=== PATIENT | female | born 1955 | race Caucasian/White ===

== ENCOUNTER 2018-01-14 12:37 | Outpatient (CLI) | payer OTHER | END 2018-01-14 12:42 | disposition home or self-care (01) | LOC: SONOGRAMA 12:37 | DX: E04.1 Nontoxic single thyroid nodule (principal) ==

== ENCOUNTER 2018-04-02 14:06 | Outpatient (CLI) | payer OTHER | END 2018-04-02 15:27 | disposition home or self-care (01) | LOC: RAD 14:06 | DX: C73 Malignant neoplasm of thyroid gland (principal); F17.210 Nicotine dependence, cigarettes, uncomplicated; Z01.810 Encounter for preprocedural cardiovascular examination ==

== ENCOUNTER 2021-06-13 13:08 | Outpatient (CLI) | payer OTHER | END 2021-06-13 13:17 | disposition home or self-care (01) | LOC: RAD 13:08 | PROVIDERS: ATTEND Ophthalmology | DX: R91.8 Other nonspecific abnormal finding of lung field (principal) ==

== ENCOUNTER 2021-09-01 11:21 | Outpatient (CLI) | payer OTHER | END 2021-09-01 15:41 | disposition home or self-care (01) | LOC: MAMO-SONO 11:21 | DX: Z12.31 Encounter for screening mammogram for malignant neoplasm of breast (principal); N64.4 Mastodynia ==

== ENCOUNTER 2021-09-05 09:39 | Outpatient (CLI) | payer OTHER | END 2021-09-05 09:40 | disposition home or self-care (01) | LOC: NUCLEAR 09:39 | PROVIDERS: ATTEND Family Medicine | DX: M81.0 Age-related osteoporosis without current pathological fracture (principal) ==

== ENCOUNTER 2021-10-24 08:30 | Outpatient (CLI) | payer OTHER | END 2021-10-24 08:39 | disposition home or self-care (01) | LOC: TOM 08:30 | PROVIDERS: ATTEND Internal Medicine | DX: K56.50 Intestinal adhesions [bands], unspecified as to partial versus complete obstruction (principal) ==

== ENCOUNTER 2022-04-07 15:21 | Outpatient (CLI) | payer OTHER | END 2022-04-07 15:35 | disposition home or self-care (01) | LOC: RAD 15:21 | PROVIDERS: ATTEND Specialist | DX: M50.222 Other cervical disc displacement at C5-C6 level (principal); M50.322 Other cervical disc degeneration at C5-C6 level; S13.4XXA Sprain of ligaments of cervical spine, initial encounter ==

== ENCOUNTER 2023-11-21 13:08 | Outpatient (CLI) | payer OTHER | END 2023-11-21 13:21 | disposition home or self-care (01) | LOC: MAMO-SONO 13:08 | DX: N64.9 Disorder of breast, unspecified (principal); N64.4 Mastodynia; N64.0 Fissure and fistula of nipple; Z12.31 Encounter for screening mammogram for malignant neoplasm of breast ==

== ENCOUNTER 2023-11-22 08:44 | Outpatient (CLI) | payer OTHER | END 2023-11-22 08:45 | disposition home or self-care (01) | LOC: NUCLEAR 08:44 | PROVIDERS: ATTEND Internal Medicine Cardiovascular Disease | DX: I20.1 Angina pectoris with documented spasm (principal) | CPT/HCPCS: 78452; 93017; A9500; J0153 ==